=== PATIENT | female | born 1955 | race Caucasian/White ===

== ENCOUNTER 2021-02-16 08:00 | Outpatient (CLI) | payer OTHER | END 2021-02-16 23:59 | disposition home or self-care (01) | LOC: LAB.S 08:00 | PROVIDERS: ATTEND Emergency Medicine | DX: T14.8XXA Other injury of unspecified body region, initial encounter (principal); W57.XXXA Bitten or stung by nonvenomous insect and other nonvenomous arthropods, initial encounter | CPT/HCPCS: 87070; 87205 ==

== ENCOUNTER 2021-09-08 11:59 | Emergency (ER) | payer OTHER ==
[2021-09-08 12:44] LABS: BASOPHILS # (AUTO) 0.1 10^3/uL (0.0-0.1); BASOPHILS % (AUTO) 0.5 %; EOSINOPHILS # (AUTO) 0.1 10^3/uL (0.0-0.7); EOSINOPHILS % (AUTO) 1.4 %; HCT - HEMATOCRIT 41.3 % (37.0-47.0); HGB - HEMOGLOBIN 14.2 g/dL (12.0-16.0); LYMPHOCYTES # (AUTO) 1.8 10^3/uL (1.5-3.5); MEAN CORPUSCULAR HEMOGLOBIN 30.7 pg (27.0-31.0); MEAN CORPUSCULAR HGB CONC 34.4 g/dL (32.0-36.0); MEAN CORPUSCULAR VOLUME 89.4 fL (81.0-99.0); MEAN PLATELET VOLUME 10.6 fL (7.9-10.8); MONOCYTES # (AUTO) 0.9 10^3/uL (0.0-1.0); MONOCYTES % (AUTO) 9.1 %; NEUTROPHILS # (AUTO) 6.7 10^3/uL (1.5-6.6); NEUTROPHILS % (AUTO) 69.6 %; PLT - PLATELET COUNT 220 10^3/uL (130-450); RED BLOOD COUNT 4.62 10^6/uL (4.20-5.40); RED CELL DISTRIBUTION WIDTH 12.8 % (12.0-15.0); WHITE BLOOD COUNT 9.6 x10^3/uL (4.8-10.8)
[2021-09-08 12:58] LABS: ALBUMIN 4.5 g/dL (3.2-5.5); ALBUMIN/GLOBULIN RATIO 1.4 (1.0-2.2); BILIRUBIN,TOTAL 0.8 mg/dL (0.2-1.0); CALCIUM 9.9 mg/dL (8.5-10.3); CREATININE 0.9 mg/dL (0.4-1.0); POTASSIUM 3.4 mmol/L (3.5-5.0); TOTAL PROTEIN 7.8 g/dL (6.7-8.2)
[2021-09-08] MEDS ORDERED: IOVERSOL 320 100 ML VIAL IVP ONE ×2 (13:09→14:06)
--- NOTE | 2021-09-08 13:41 | CT Report ---
PROCEDURE: Abdomen/Pelvis W INDICATIONS: LLQ Abdominal pain, diverticulitis suspected CONTRAST: IV CONTRAST: Optiray 320 ml: 100 PO CONTRAST: *NO PO CONTRAST TECHNIQUE: After the administration of intravenous contrast, 5 mm thick sections acquired from the diaphragms to the symphysis. 5 mm thick coronal and sagittal reformats were acquired. For radiation dose reducti on, the following was used: automated exposure control, adjustment of mA and/or kV according to miquel ent size. COMPARISON: None. FINDINGS: Image quality: Excellent. ABDOMEN: Lung bases: A few small nodules are seen in the lung bases measuring up to 3 mm, which are most likel y benign. Heart size is normal. Solid organs: Liver and spleen are normal in size and enhancement. Gallbladder is unremarkable. Bi liary system is non dilated. Pancreas enhances normally. No adrenal nodules. Kidneys demonstrate n ormal size and enhancement, without hydronephrosis. Peritoneum and bowel: Numerous diverticula are seen in the sigmoid colon. There is also pleural thick ening and trace pericolonic fat stranding; that is suspicious for diverticulitis. Bowel thickening is also seen in the mid transverse colon and throughout the descending colon as well as in the rectum. No signs of bowel obstruction. No focal fluid collection or abscess. No pneumoperitoneum. Normal appe ndix. Nodes and vessels: No retroperitoneal or mesenteric adenopathy by size criteria. Aorta and inferior vena cava are normal in size. Mild aortic atherosclerotic calcifications. Miscellaneous: No ventral hernias. PELVIS: Genitourinary: Bladder wall thickness is normal. Miscellaneous: No inguinal hernias or adenopathy. Bones: No suspicious bony lesions. No vertebral body compression fractures. Degenerative changes a re seen in the spine. IMPRESSION: 1.Sigmoid diverticulosis with trace pericolonic fat stranding and bowel wall thickening. Bowel wall t hickening also seen in the transverse and descending colon and the rectum. Findings may represent acu te sigmoid diverticulitis and/or a nonspecific proctocolitis. No abscess or pneumoperitoneum. No sign s of bowel obstruction. 2.Small benign-appearing 3 mm nodules are seen in the lung bases. Optional chest CT could be performe d if the patient is at an increased risk for pulmonary malignancy. Reviewed by: Rai Bull MD on 09/08/2021 1:40 PM PDT Approved by: Rai Bull MD on 09/08/2021 1:40 PM PDT Station ID: [id number]
--- NOTE | 2021-09-08 13:51 | ED Physician Documentation ---
PD HPI ABD PAIN - Stated complaint Stated Complaint: FEMALE - Chief complaint Chief Complaint: Abd Pain - History obtained from History obtained from: Patient - History of Present Illness Timing - onset: How many weeks ago (1) Timing - duration: Weeks (1) Timing - details: Gradual onset Pain level max: 6 Pain level now: 5 Quality: Aching, Pain Improved by: Other (nothing) Worsened by: Other (nothing) Associated symptoms: Diarrhea, Hematochezia. No: Fever, Nausea, Vomiting, Hematemesis Recently seen: Not recently seen Review of Systems Constitutional: denies: Fever, Chills Nose: denies: Rhinorrhea / runny nose, Congestion Throat: denies: Sore throat Respiratory: denies: Cough GI: denies: Abdominal Pain, Nausea, Vomiting Skin: denies: Rash Musculoskeletal: denies: Neck pain, Back pain Neurologic: denies: Headache PD PAST MEDICAL HISTORY - Past Medical History Past Medical History: Yes Cardiovascular: Hypertension Respiratory: None Endocrine/Autoimmune: None GI: Other THERAPY TECH: None : None HEENT: None Psych: None Musculoskeletal: None Derm: None - Past Surgical History Past Surgical History: No - Present Medications Home Medications: Ambulatory Orders Medication Instructions Recorded Confirmed Amox/Clav 875/125 [Augmentin] 1 tab PO Q12H #20 tablet 09/08/21 - Allergies Allergies/Adverse Reactions: Allergies Allergy/AdvReac Type Severity Reaction Status Date / Time Sulfa (Sulfonamide Allergy Rash Verified 09/08/21 12:05 Antibiotics) - Social History Does the pt smoke?: No Smoking Status: Never smoker Does the pt drink ETOH?: No Does the pt have substance abuse?: No - Immunizations Immunizations are current?: Yes - POLST Patient has POLST: No PD ED PE NORMAL - Vitals Vital signs reviewed: Yes - General General: Alert and oriented X 3, No acute distress - HEENT HEENT: Moist mucous membranes - Neck Neck: Supple, no meningeal sign - Cardiac Cardiac: RRR - Respiratory Respiratory: No respiratory distress, Clear bilaterally - Abdomen Abdomen: Soft, Other (Tender palpation left lower quadrant. No peritoneal signs.) - Derm Derm: Warm and dry - Extremities Extremities: No edema - Neuro Neuro: Alert and oriented X 3 - Psych Psych: Normal mood, Normal affect Results - Vitals Vitals: Vital Signs - 24 hr 09/08/21 09/08/21 09/08/21 12:03 13:42 14:15 Temperature 36.4 C L 36.8 C Heart Rate 72 55 L 58 L Respiratory 16 18 18 Rate Blood Pressure 133/90 H 180/83 H 140/80 H O2 Saturation 95 100 99 Oxygen O2 Source Room air - Labs Labs: Laboratory Tests 09/08/21 09/08/21 09/08/21 12:38 12:38 13:53 WBC 9.6 RBC 4.62 Hgb 14.2 Hct 41.3 MCV 89.4 MCH 30.7 MCHC 34.4 RDW 12.8 Plt Count 220 MPV 10.6 Neut # (Auto) 6.7 H Lymph # (Auto) 1.8 [place] # (Auto) 0.9 Eos # (Auto) 0.1 Baso # (Auto) 0.1 Absolute Nucleated RBC 0.00 Nucleated RBC % 0.0 Sodium 135 Potassium 3.4 L Chloride 98 L Carbon Dioxide 25 Anion Gap 12.0 BUN 18 Creatinine 0.9 Estimated GFR (MDRD) 63 L Glucose 108 H Calcium 9.9 Total Bilirubin 0.8 AST 22 ALT 25 Alkaline Phosphatase 67 Total Protein 7.8 Albumin 4.5 Globulin 3.3 Albumin/Globulin Ratio 1.4 Lipase 40 Urine Color LT. YELLOW Urine Clarity CLEAR Urine pH 5.0 Ur Specific [place] <=1.005 Urine Protein NEGATIVE Urine Glucose (UA) NEGATIVE Urine Ketones NEGATIVE Urine Occult Blood NEGATIVE Urine Nitrite NEGATIVE Urine Bilirubin NEGATIVE Urine Urobilinogen 0.2 (NORMAL) Ur Leukocyte Esterase NEGATIVE Ur Microscopic Review NOT INDICATED Urine Culture Comments NOT INDICATED - Rads (name of study) CT abdomen pelvis Radiology: Final report received, EMP read contemporaneously, See rad report PD MEDICAL DECISION MAKING - ED course Complexity details: reviewed results, re-evaluated patient, considered differential, d/w patient ED course: 66-year-old female with diarrhea. Appears to have diverticulitis versus colitis. We will trial on antibiotics for home. Unable to give a stool sample here. Patient is well-appearing, nontoxic. Afebrile. No evidence of sepsis. Patient counseled regarding signs and symptoms for which I believe and urgent re-evaluation would be necessary. Patient with good understanding of and agreement to plan and is comfortable going home at this time This document was made in part using voice recognition software. While efforts are made to proofread this document, sound alike and grammatical errors may occur. IMPRESSION: 1.Sigmoid diverticulosis with trace pericolonic fat stranding and bowel wall thickening. Bowel wall thickening also seen in the transverse and descending colon and the rectum. Findings may represent acute sigmoid diverticulitis and/or a nonspecific proctocolitis. No abscess or pneumoperitoneum. No signs of bowel obstruction. 2.Small benign-appearing 3 mm nodules are seen in the lung bases. Optional chest CT could be performed if the patient is at an increased risk for pulmonary malignancy. Departure - Departure Disposition: 01 Home, Self Care Clinical Impression: Colitis, Diverticulitis Condition: Good Instructions: ED Diverticulitis Follow-Up: Matt Doyle MD [Primary Care Provider] - Prescriptions: Amox/Clav 875/125 [Augmentin] 1 tab PO Q12H #20 tablet Comments: Your prescription was sent to the [facility] pharmacy. Please take all antibiotics until gone. Follow-up with your doctor next week for repeat evaluation. You should follow-up with your doctor regarding the small benign- appearing nodules in your lung bases as well. Return if you worsen. IMPRESSION: 1.Sigmoid diverticulosis with trace pericolonic fat stranding and bowel wall thickening. Bowel wall thickening also seen in the transverse and descending colon and the rectum. Findings may represent acute sigmoid diverticulitis and/or a nonspecific proctocolitis. No abscess or pneumoperitoneum. No signs of bowel obstruction. 2.Small benign-appearing 3 mm nodules are seen in the lung bases. Optional chest CT could be performed if the patient is at an increased risk for pulmonary malignancy. Discharge Date/Time: 09/08/21 14:17
[2021-09-08] MEDS ORDERED: AMOX/CLAV 875 MG/125 MG TABLET PO STA (13:57)
[2021-09-08 14:05] LABS: BILIRUBIN,URINE NEGATIVE (NEGATIVE); CLARITY,URINE CLEAR (CLEAR); GLUCOSE, URINE (UA) NEGATIVE (NEGATIVE); KETONES,URINE (UA) NEGATIVE (NEGATIVE); LEUKOCYTE ESTERASE, URINE NEGATIVE (NEGATIVE); NITRITE,URINE NEGATIVE (NEGATIVE); OCCULT BLOOD,URINE NEGATIVE (NEGATIVE); PROTEIN,URINE NEGATIVE (NEGATIVE); UROBILINOGEN,URINE 0.2 (NORMAL) E.U./dL (NORMAL)
[2021-09-08 14:17] VITALS: BP 140/80
== END 2021-09-08 14:17 | disposition home or self-care (01) ==
LOC: ED 11:59
DX: K52.9 Noninfective gastroenteritis and colitis, unspecified (principal); K57.32 Diverticulitis of large intestine without perforation or abscess without bleeding; I10 Essential (primary) hypertension
CPT/HCPCS: 36415; 74177; 80053; 81003; 83690; 85025; 99284; A9270; Q9967; 81001; 87086

== ENCOUNTER 2022-01-16 08:00 | Outpatient (CLI) | payer OTHER ==
[2022-01-16 20:11] LABS: BILIRUBIN,URINE NEGATIVE (NEGATIVE); GLUCOSE, URINE (UA) NEGATIVE (NEGATIVE); KETONES,URINE (UA) NEGATIVE (NEGATIVE); LEUKOCYTE ESTERASE, URINE TRACE (NEGATIVE); NITRITE,URINE NEGATIVE (NEGATIVE); OCCULT BLOOD,URINE NEGATIVE (NEGATIVE); PROTEIN,URINE NEGATIVE (NEGATIVE); UROBILINOGEN,URINE 0.2 (NORMAL) E.U./dL (NORMAL)
[2022-01-16 20:25] LABS: CLARITY,URINE CLEAR (CLEAR)
[2022-01-16 20:26] LABS: BACTERIA,URINE Few /HPF (None Seen); RBC,URINE 0-5 /HPF (0-5); SQUAMOUS EPITHELIAL CELL,UR FEW Squamous (<= Few)
== END 2022-01-16 23:59 | disposition home or self-care (01) ==
LOC: LAB.S 08:00
PROVIDERS: ATTEND Emergency Medicine
DX: N39.0 Urinary tract infection, site not specified (principal)
CPT/HCPCS: 81001; 87086